=== PATIENT | male | born 1940 | race Caucasian/White ===

== ENCOUNTER 2020-07-02 09:39 | Emergency (ER) | payer MEDICARE, OTHER ==
[2020-07-02] MEDS ORDERED: Lidocaine 1% 10 ML MDV INJECT ONE (10:05)
--- NOTE | 2020-07-02 10:10 | EDM.PDOC ---
ED HPI GENERAL MEDICAL PROBLEM - General Chief Complaint: Trauma Stated Complaint: SYNCOPE/ FACIAL INJURIES Time Seen by Provider: 07/02/20 10:05 Source of Information: Reports: Patient, Family (spouse) History Limitations: Reports: No Limitations - History of Present Illness INITIAL COMMENTS - FREE TEXT/NARRATIVE: 79-year-old male presents to the ED after syncopal event at home this morning. Patient believes he may have a hiatal hernia and this intermittently will cause him to have vasovagal symptoms due to recurrent burping belching and pressure in the epigastrium. He states this morning it got quite bad to the point that he did not think he could get a breath and then he passed out. He struck the floor primarily with his face and suffered a deep laceration in the left eyebrow area. Contused his left elbow but did not appear to suffer any other injuries. Injury occurred about an hour and a half prior to coming to the ED. He believes he is up-to-date on his tetanus toxoid. Onset: Today, Sudden Onset Date: 07/02/20 Onset Time: 08:30 Duration: Hour(s):, Constant Location: Reports: Face (Facial laceration left eyebrow) Quality: Reports: Ache Severity: Moderate Improves with: Reports: None Worsens with: Reports: None Context: Denies: Activity, Exercise, Lifting, Sick Contact, Trauma, Other Associated Symptoms: Denies: Confusion, Chest Pain, Cough, cough w sputum, Diaphoresis, Fever/Chills, Headaches, Loss of Appetite, Malaise, Nausea/Vomiting, Rash, Seizure, Shortness of Breath Treatments SHANK TAPER: Reports: Other (see below) (None.) - Related Data Allergies Allergy/AdvReac Type Severity Reaction Status Date / Time nuts Allergy Cannot Uncoded 07/02/20 10:03 Remember Home Meds: Home Meds Calcium Carbonate [Calcium] 1,200 mg PO DAILY 07/02/20 [History] Donepezil [Aricept] 10 mg PO DAILY 07/02/20 [History] Finasteride [Proscar] 5 mg PO DAILY 07/02/20 [History] Fluticasone Furoate [Flonase Sensimist] 1 dose MICAELA DAILY 07/02/20 [History] Sertraline [Zoloft] 50 mg PO DAILY 07/02/20 [History] Vitamin B Complex Vit C No.3 [B Complex with Vitamin C] 1 tab PO DAILY 07/02/20 [History] Past Medical History Genitourinary History: Reports: BPH Musculoskeletal History: Reports: Osteoarthritis Social & Family History - Living Situation & Occupation Living situation: Reports: Occupation: Retired Review of Systems - Review of Systems Review Of Systems: See Below Constitutional: Denies: Chills, Diaphoresis, Fever, Weakness, Other Eyes: Reports: No Symptoms, Glasses (For reading.) Ears: Reports: Other (Does wear bilateral hearing aids.) Mouth/Throat: Reports: No Symptoms, Loose Teeth. Denies: Bleeding, Clots, Lip Swelling Respiratory: Reports: No Symptoms Cardiovascular: Reports: Syncope ([place] to be precipitated by vasovagal episode this morning.) GI/Abdominal: Reports: Other (Pressure in the epigastrium on intermittent basis he believes he has a hiatal hernia. This caused vasovagal symptoms this morning which precipitated a syncopal event.) Genitourinary: Reports: Other (Nocturia x2.) Musculoskeletal: Reports: No Symptoms Skin: Reports: No Symptoms Neurological: Reports: No Symptoms Psychiatric: Reports: No Symptoms ED EXAM, GENERAL - Physical Exam Exam: See Below Exam Limited By: No Limitations General Appearance: Alert, WD/WN, Mild Distress, Other (Patient has an obvious curvilinear laceration left eyebrow that measures 3 cm in length.) Eye Exam: Bilateral Eye: Normal Inspection, PERRL, Other (Curvilinear laceration over the supraorbital ridge and eyebrow area left side) Throat/Mouth: Normal Inspection, Normal Lips, Normal Teeth, Normal Oropharynx Head: Normocephalic, Other (Starting to get a little black and blue underneath his left eye. Firm compression over the maxillary sinuses and zygomatic processes do not reveal any fractures. Temporomandibular joints are normal.) Neck: Normal Inspection, Supple, Non-Tender, Full Range of Motion, Other (Full unopposed range of motion of his cervical spine.). No: Lymphadenopathy (L), Lymphadenopathy (R) Respiratory/Chest: No Respiratory Distress, Lungs Clear, Normal Breath Sounds, No Accessory Muscle Use Cardiovascular: Normal Peripheral Pulses, Regular Rate, Rhythm, No Edema, No Murmur, No Rub Peripheral Pulses: 2+: Posterior Tibial (L), Posterior Tibial (R), Dorsalis Pedis (L), Dorsalis Pedis (R), 3+: Carotid (L), Carotid (R) GI/Abdominal: Normal Bowel Sounds, Soft, Non-Tender, No Organomegaly, No Abnormal Bruit, No Mass, Pelvis Stable Extremities: Other (Has some pain in his left elbow but has full range of motion and full pronation supination of the) Neurological: Alert, Oriented ( arm. 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 no injuries to the lower extremities appreciated on exam), CN II-XII Intact, Normal Cognition Psychiatric: Normal Affect, Normal Mood Skin Exam: Warm, Dry, Intact, No Rash ED TRAUMA PROCEDURES - Laceration/Wound Repair Left Lateral Face Lac/Wound Length In cm: 3.5 (Deep 3.5 cm laceration curvilinear along the left eyebrow over the supraorbital ridge) Appearance: Subcutaneous, Clean Distal NVT: Neuro & Vascular Intact Anesthetic Type: Local Local Anesthesia - Lidocaine (Xylocaine): 1% Plain Local Anesthetic Volume: Other Skin Prep: Saline (8 cc) Exploration/Debridement/Repair: Wound Explored Closed With: Sutures Suture Size: 4-0 # of Sutures: 11 Suture Type: Nylon, Interrupted, Simple Course - Vital Signs Last Recorded V/S: Last Vital Signs Temp 36.7 C 07/02/20 10:11 Pulse 70 07/02/20 10:30 Resp 11 L 07/02/20 10:11 BP 120/62 07/02/20 10:30 Pulse Ox 98 07/02/20 10:30 Orthostatic Blood Pressure [] 102/72 Orthostatic Blood Pressure [] 124/93 - Orders/Labs/Meds Meds: Medications Discontinued Medications Generic Name Dose Route Start Last Admin Trade Name Vjq PRN Reason Stop Dose Admin Lidocaine HCl 20 ml 07/02/20 10:05 07/02/20 10:25 Lidocaine 1% 10 Ml Mdv INJECT 07/02/20 10:06 20 ml ONETIME ONE Administration - Radiology Interpretation Free Text/Narrative:: 79-year-old male presents to the ED after suffering a syncopal event which I believe was a vagal vasovagal in origin at home this morning. This resulted in syncope and a fall with resultant contusion to his face. He has a curvilinear laceration approximately 3 cm in length along the left eyebrow area. Clinically has no facial fractures. Neck has full range of motion. He has some mild pain in his left elbow but clinically no evidence of any bony injuries. No injuries to the lower extremities identified either. Plan for laceration repair under local anesthetic. He believes his tetanus diphtheria pertussis vaccine is up-to-date. - Re-Assessments/Exams Free Text/Narrative Re-Assessment/Exam: 07/02/20 10:30: Laceration of the supraorbital ridge left eyebrow area was sutured under local anesthetic times 11 sutures. Utilized 4-0 Ethilon to provide wound closure. Patient will cleanse the wound daily at home with soap and water. He will then apply topical antibiotic such as bacitracin or Polysporin once daily. Sutures could be removed in 8 days time Departure - Departure Time of Disposition: 10:41 Disposition: Home, Self-Care 01 Condition: Fair Clinical Impression: Facial laceration Qualifiers: Encounter type: initial encounter Qualified Code(s): S01.81XA - Laceration without foreign body of other part of head, initial encounter - Discharge Information *PRESCRIPTION DRUG MONITORING PROGRAM REVIEWED*: Not Applicable *COPY OF PRESCRIPTION DRUG MONITORING REPORT IN PATIENT VIVEK: Not Applicable Instructions: Laceration Care, Adult, Sutures, Alex, or Adhesive Wound Closure, [id number] Referrals: Deonte Tamez MD [Primary Care Provider] - Forms: ED Department Discharge Additional Instructions: Evaluation in the emergency room this morning in regards to his syncopal event that occurred at home this morning which I believe was vasovagal in origin. As you described a pressure in the pit of your stomach likely from hiatal hernia causing you to wretch and dry heaves with attempt to burp and belch. This resulted in a vasovagal attack which lowers her heart rate and your blood pressure and causes you to fall or lose consciousness transiently. Unfortunately you have suffered a deep 3.5 cm laceration to your left eyebrow area over the supraorbital ridge. Clinically does not have any facial fractures and no injuries to the neck. Mild contusion to the left elbow appreciated. Facial laceration was sutured under local anesthetic. Treatment at home is to daily cleanse the wound with soap and water. Showering is okay. Then apply topical antibiotic such as bacitracin or Polysporin to the wound once daily. Sutures should be removed in approximately 8 days time. Please follow-up with your personal care provider to have this performed. Follow-up sooner if any signs of infection develop such as increased redness, swelling or pain and/or obvious pus. Sepsis Event Note (ED) - Focused Exam Vital Signs: Vital Signs Temp Pulse Resp BP Pulse Ox 07/02/20 10:30 70 120/62 98 07/02/20 10:11 36.7 C 60 11 L 124/93 H 98
== END 2020-07-02 10:51 | disposition home or self-care (01) ==
LOC: JD.ED 09:39
DX: S01.112A Laceration without foreign body of left eyelid and periocular area, initial encounter (principal); Z91.010 Allergy to peanuts; W22.8XXA Striking against or struck by other objects, initial encounter
CPT/HCPCS: 12013; 99283; 99283-25

== ENCOUNTER 2020-11-04 20:02 | Emergency (ER) | payer MEDICARE, OTHER ==
[2020-11-04] MEDS ORDERED: Sodium Chloride 0.9% 10 ML Syringe FLUSH PRN (20:41)
[2020-11-04] MEDS ORDERED: Ondansetron 4 MG/2 ML SDV IVPUSH ONE (20:41)
[2020-11-04] MEDS ORDERED: HYDROmorphone 0.5 MG/0.5 ML Syringe IVPUSH ONE (20:41)
[2020-11-04] MEDS ORDERED: Sodium Chloride 0.9% 1,000 ML IV SCH (20:45)
--- NOTE | 2020-11-04 20:59 | EDM.PDOC ---
ED HPI GENERAL MEDICAL PROBLEM - General Chief Complaint: Flank Pain Stated Complaint: R SIDE PAIN/VOMITING/WEAK Time Seen by Provider: 11/04/20 20:21 Source of Information: Reports: Patient, RN Notes Reviewed - History of Present Illness INITIAL COMMENTS - FREE TEXT/NARRATIVE: 80 yr old male with onset of R back pain yesterday radiating to R flank, severe at times and than went away until coming back this afternoon. Continues moderately severe this evening with radiation to R flank and towards R groin. Has had some N/V. No voiding sx. Right Flank Pain Score (Numeric/FACES): 7 - Related Data Allergies Allergy/AdvReac Type Severity Reaction Status Date / Time nut - unspecified Allergy Cannot Verified 07/03/20 11:53 Remember Home Meds: Home Meds Calcium Carbonate [Calcium] 1,200 mg PO DAILY 07/02/20 [History] Donepezil [Aricept] 10 mg PO DAILY 07/02/20 [History] Finasteride [Proscar] 5 mg PO DAILY 07/02/20 [History] Fluticasone Furoate [Flonase Sensimist] 1 dose MICAELA DAILY 07/02/20 [History] Sertraline [Zoloft] 50 mg PO DAILY 07/02/20 [History] Vitamin B Complex Vit C No.3 [B Complex with Vitamin C] 1 tab PO DAILY 07/02/20 [History] Hydrocodone/Acetaminophen [HYDROcodone-Acetaminophen 5-325 MG] 1 each PO Q4HR PRN #20 tab 11/04/20 [Rx] Past Medical History Genitourinary History: Reports: BPH Musculoskeletal History: Reports: Osteoarthritis - Infectious Disease History Infectious Disease History: Reports: None - Past Surgical History HEENT Surgical History: Reports: Tonsillectomy Musculoskeletal Surgical History: Reports: Shoulder Surgery Social & Family History - Caffeine Use Caffeine Use: Reports: Coffee - Living Situation & Occupation Living situation: Reports: Occupation: Retired ED ROS GENERAL - Review of Systems Review Of Systems: See Below Constitutional: Reports: Diaphoresis (mild, gone). Denies: Fever, Chills HEENT: Reports: No Symptoms Respiratory: Denies: Shortness of Breath Cardiovascular: Denies: Chest Pain GI/Abdominal: Reports: Abdominal Pain, Nausea, Vomiting (dry heaves) Musculoskeletal: Reports: Back Pain Skin: Reports: No Symptoms Neurological: Reports: No Symptoms ED EXAM, RENAL/ - Physical Exam Exam: See Below General Appearance: Alert, Mild Distress Head: Atraumatic Neck: Supple Respiratory/Chest: No Respiratory Distress, Lungs Clear, Normal Breath Sounds Cardiovascular: Regular Rate, Rhythm GI/Abdominal: Soft, Tender (mild tenderness R flank and R lower abd) Back Exam: CVA Tenderness (R) Extremities: Normal Inspection. No: Pedal Edema Neurological: Alert, Oriented, No Motor/Sensory Deficits Skin Exam: Warm, Dry, Normal Color Course - Vital Signs Last Recorded V/S: Last Vital Signs Temp 96.5 F L 11/04/20 20:29 Pulse 52 L 11/04/20 20:29 Resp 20 11/04/20 20:29 BP 139/79 11/04/20 20:29 Pulse Ox 95 11/04/20 20:29 - Orders/Labs/Meds Orders: Active Orders 24 hr Category Date Time Status Abdomen Pelvis wo Cont [CT] Stat Exams 11/04/20 21:00 Taken Sodium Chloride 0.9% [Normal Saline] 1,000 ml Med 11/04/20 20:45 Active IV ONETIME Sodium Chloride 0.9% [Saline Flush] Med 11/04/20 20:41 Active 10 ml FLUSH ASDIRECTED PRN Peripheral IV Insertion Adult [OM.PC] Stat Oth 11/04/20 20:40 Ordered Medication Orders Sodium Chloride (Normal Saline) 1,000 mls @ 999 mls/hr IV ONETIME [facility] [place] Last Admin: 11/04/20 20:57 Dose: 999 mls/hr Documented by: ISAIAS Sodium Chloride (Sodium Chloride 0.9% 10 Ml Syringe) 10 ml FLUSH ASDIRECTED PRN PRN Reason: Keep Vein Open Last Admin: 11/04/20 20:58 Dose: 10 ml Documented by: ISAIAS Labs: Laboratory Tests 11/04/20 11/04/20 11/04/20 Range/Units 20:50 20:50 20:50 WBC 12.11 H (4.23-9.07) K/mm3 RBC 4.87 (4.63-6.08) M/mm3 Hgb 15.2 (13.7-17.5) gm/dl Hct 46.0 (40.1-51.0) % MCV 94.5 H (79.0-92.2) fl MCH 31.2 (25.7-32.2) pg MCHC 33.0 (32.2-35.5) g/dl RDW Std Deviation 47.8 H (35.1-43.9) fL Plt Count 239 (163-337) K/mm3 MPV 10.1 (9.4-12.3) fl Neut % (Auto) 86.7 H (34.0-67.9) % Lymph % (Auto) 8.1 L (21.8-53.1) % Menard % (Auto) 4.8 L (5.3-12.2) % Eos % (Auto) 0.1 L (0.8-7.0) Baso % (Auto) 0.2 (0.1-1.2) % Neut # (Auto) 10.51 H (1.78-5.38) K/mm3 Lymph # (Auto) 0.98 L (1.32-3.57) K/mm3 Menard # (Auto) 0.58 (0.30-0.82) K/mm3 Eos # (Auto) 0.01 L (0.04-0.54) K/mm3 Baso # (Auto) 0.02 (0.01-0.08) K/mm3 Sodium 140 (136-145) mEq/L Potassium 4.5 (3.5-5.1) mEq/L Chloride 105 (98-107) mEq/L Carbon Dioxide 27 (21-32) mEq/L Anion Gap 12.5 (5-15) BUN 36 H (7-18) mg/dL Creatinine 1.6 H (0.7-1.3) mg/dL Est Cr Clr Drug Dosing 39.87 mL/min Estimated GFR (MDRD) 42 (>60) mL/min BUN/Creatinine Ratio 22.5 H (14-18) Glucose 149 H (70-99) mg/dL Calcium 8.6 (8.5-10.1) mg/dL Total Bilirubin 0.6 (0.2-1.0) mg/dL AST 23 (15-37) U/L ALT 38 (16-63) U/L Alkaline Phosphatase 65 (46-116) U/L C-Reactive Protein <0.2 (<1.0) mg/dL Total Protein 6.9 (6.4-8.2) g/dl Albumin 3.7 (3.4-5.0) g/dl Globulin 3.2 gm/dL Albumin/Globulin Ratio 1.2 (1-2) Urine Color (Yellow) Urine Appearance (Clear) Urine pH (5.0-8.0) Ur Specific Lipan (1.005-1.030) Urine Protein (Negative) Urine Glucose (UA) (Negative) Urine Ketones (Negative) Urine Occult Blood (Negative) Urine Nitrite (Negative) Urine Bilirubin (Negative) Urine Urobilinogen (0.2-1.0) Ur Leukocyte Esterase (Negative) Urine RBC (0-5) /hpf Urine WBC (0-5) /hpf Ur Squamous Epith Cells (0-5) /hpf Urine Bacteria (FEW) /hpf Urine Mucus (FEW) /hpf 11/04/20 Range/Units 23:31 WBC (4.23-9.07) K/mm3 RBC (4.63-6.08) M/mm3 Hgb (13.7-17.5) gm/dl Hct (40.1-51.0) % MCV (79.0-92.2) fl MCH (25.7-32.2) pg MCHC (32.2-35.5) g/dl RDW Std Deviation (35.1-43.9) fL Plt Count (163-337) K/mm3 MPV (9.4-12.3) fl Neut % (Auto) (34.0-67.9) % Lymph % (Auto) (21.8-53.1) % Menard % (Auto) (5.3-12.2) % Eos % (Auto) (0.8-7.0) Baso % (Auto) (0.1-1.2) % Neut # (Auto) (1.78-5.38) K/mm3 Lymph # (Auto) (1.32-3.57) K/mm3 Menard # (Auto) (0.30-0.82) K/mm3 Eos # (Auto) (0.04-0.54) K/mm3 Baso # (Auto) (0.01-0.08) K/mm3 Sodium (136-145) mEq/L Potassium (3.5-5.1) mEq/L Chloride (98-107) mEq/L Carbon Dioxide (21-32) mEq/L Anion Gap (5-15) BUN (7-18) mg/dL Creatinine (0.7-1.3) mg/dL Est Cr Clr Drug Dosing mL/min Estimated GFR (MDRD) (>60) mL/min BUN/Creatinine Ratio (14-18) Glucose (70-99) mg/dL Calcium (8.5-10.1) mg/dL Total Bilirubin (0.2-1.0) mg/dL AST (15-37) U/L ALT (16-63) U/L Alkaline Phosphatase (46-116) U/L C-Reactive Protein (<1.0) mg/dL Total Protein (6.4-8.2) g/dl Albumin (3.4-5.0) g/dl Globulin gm/dL Albumin/Globulin Ratio (1-2) Urine Color Yellow (Yellow) Urine Appearance Slt cloudy H (Clear) Urine pH 5.5 (5.0-8.0) Ur Specific Lipan 1.025 (1.005-1.030) Urine Protein 1+ H (Negative) Urine Glucose (UA) Negative (Negative) Urine Ketones Negative (Negative) Urine Occult Blood 3+ H (Negative) Urine Nitrite Negative (Negative) Urine Bilirubin Negative (Negative) Urine Urobilinogen 0.2 (0.2-1.0) Ur Leukocyte Esterase 1+ H (Negative) Urine RBC >100 H (0-5) /hpf Urine WBC 5-10 H (0-5) /hpf Ur Squamous Epith Cells 0-5 (0-5) /hpf Urine Bacteria Few (FEW) /hpf Urine Mucus Moderate H (FEW) /hpf Meds: Medications Generic Name Dose Route Start Last Admin Trade Name Freq PRN Reason Stop Dose Admin Sodium Chloride 1,000 mls @ 999 mls/hr 11/04/20 20:45 11/04/20 20:57 Normal Saline IV 999 mls/hr ONETIME YANE Administration Sodium Chloride 10 ml 11/04/20 20:41 11/04/20 20:58 Sodium Chloride 0.9% 10 Ml Syringe FLUSH 10 ml ASDIRECTED PRN Administration Keep Vein Open Discontinued Medications Generic Name Dose Route Start Last Admin Trade Name Freq PRN Reason Stop Dose Admin Hydromorphone HCl 0.5 mg 11/04/20 20:41 11/04/20 20:57 Hydromorphone 0.5 Mg/0.5 Ml Syringe IVPUSH 11/04/20 20:42 0.5 mg ONETIME ONE Administration Ondansetron HCl 4 mg 11/04/20 20:41 11/04/20 20:57 Ondansetron 4 Mg/2 Ml Sdv IVPUSH 11/04/20 20:42 4 mg ONETIME ONE Administration - Re-Assessments/Exams Free Text/Narrative Re-Assessment/Exam: 11/05/20 00:[address] showed a 3 by 5 mm stone distal R ureter, see Radiology report for details. He has had good relief from dilaudid 0.5 mg IV. Discharge instr. as documented Departure - Departure Time of Disposition: 23:18 Disposition: Home, Self-Care 01 Condition: Fair Clinical Impression: Kidney stone on right side, Ureter colic - Discharge Information Prescriptions: Hydrocodone/Acetaminophen [HYDROcodone-Acetaminophen 5-325 MG] 1 each PO Q4HR PRN #20 tab PRN Reason: Pain Instructions: Kidney Stones, [id number] Referrals: Deonte Tamez MD [Primary Care Provider] - Forms: ED Department Discharge Additional Instructions: Strain urine to watch for stone. Drink plenty of water to maintain hydration. Tylenol for mild to moderate pain or hydrocodone if needed for severe pain. Prescription has been sent to [facility]. Follow up clinic Monday or early next week for recheck. Return to ED as needed. Sepsis Event Note (ED) - Focused Exam Vital Signs: Vital Signs Temp Pulse Resp BP Pulse Ox 11/04/20 20:29 96.5 F L 52 L 20 139/79 95 - My Orders Last 24 Hours: My Active Orders 11/04/20 20:40 Peripheral IV Insertion Adult [OM.PC] Stat 11/04/20 20:41 Sodium Chloride 0.9% [Saline Flush] 10 ml FLUSH ASDIRECTED PRN 11/04/20 20:45 Sodium Chloride 0.9% [Normal Saline] 1,000 ml IV ONETIME 11/04/20 21:00 Abdomen Pelvis wo Cont [CT] Stat - Assessment/Plan Last 24 Hours: My Active Orders 11/04/20 20:40 Peripheral IV Insertion Adult [OM.PC] Stat 11/04/20 20:41 Sodium Chloride 0.9% [Saline Flush] 10 ml FLUSH ASDIRECTED PRN 11/04/20 20:45 Sodium Chloride 0.9% [Normal Saline] 1,000 ml IV ONETIME 11/04/20 21:00 Abdomen Pelvis wo Cont [CT] Stat
--- NOTE | 2020-11-05 06:54 | CT ---
CT abdomen and pelvis Technique: Multiple axial sections were obtained from above the dome of the diaphragm inferiorly through the pubic symphysis. Intravenous and oral contrast were not utilized. Study has been performed as a ureteral stone protocol. Reconstructed coronal and sagittal images were also obtained. Comparison: No prior abdominal imaging is available. Findings: Linear densities are seen within both lung bases which is most likely due to areas of atelectasis and scarring. Small hiatal hernia is noted. Dilated right ureter is noted. This finding is caused by an obstructing stone within the distal right ureter measuring about 5 mm. There is inflammatory change around the right kidney compatible with the obstruction. Parapelvic cysts are noted within the left kidney. Cortical calcifications are seen within a portion of the right kidney compatible with scarring. Several small nonobstructing calculi are seen within both kidneys. Noncontrast appearance of the liver shows no focal abnormality. Multiple calcified gallstones are seen within the gallbladder. Spleen size is normal. Adrenal glands show no nodule. Pancreas shows no discrete abnormality. Abdominal aorta shows atherosclerotic calcification with extension into the iliac arteries. No aneurysm is seen. Three calcifications are noted within the bladder. Largest bladder calculus measures 1.6 cm. Diverticuli are noted within the sigmoid colon with no findings of diverticulitis. No free fluid or other inflammatory change is seen. Impression: 1. 5 mm obstructing stone within the distal right ureter which is located around 6-7 cm from the UVJ. 2. Several small nonobstructing calculi within both kidneys. Slight cortical calcifications are seen within the right kidney compatible with scarring. Small parapelvic cysts noted within the left kidney. 3. Atelectasis and scarring within both lung bases. 4. Numerous small calcified gallstones within the gallbladder. 5. Three calcifications within the bladder compatible with bladder calculi. 6. Other findings as noted above which are felt to be nonacute. Diagnostic code #3 I agree with preliminary report from [facility], finalized on 11/04/20, 11:51 PM CDT, code 1
== END 2020-11-04 23:32 | disposition home or self-care (01) ==
LOC: JD.ED 20:02
DX: N20.2 Calculus of kidney with calculus of ureter (principal); M19.90 Unspecified osteoarthritis, unspecified site; Z91.013 Allergy to seafood; Z79.899 Other long term (current) drug therapy
CPT/HCPCS: 36415; 74176; 80053; 81001; 85025; 86140; 96374; 96375; 99284; J1170; J2405; J7030

== ENCOUNTER 2022-10-01 03:01 | Emergency (ER) | payer MEDICARE, OTHER ==
[2022-10-01] MEDS ORDERED: Sodium Chloride 0.9% 1,000 ML IV ONE (03:09)
[2022-10-01 03:32] LABS: BASOPHILS PERCENT AUTO 0.2 % (0.0-1.0); EOSINOPHILS ABSOLUTE AUTO 0.1 K/mm3 (0.0-0.4); EOSINOPHILS PERCENT AUTO 1.4 % (0.0-6.0); HEMATOCRIT 42.1 % (42.0-52.0); HEMOGLOBIN 13.9 gm/dl (14.0-18.0); IMMATURE GRAN ABSOLUTE AUTO 0.02 K/mm3 (0.00-0.05); IMMATURE GRAN PERCENT AUTO 0.2 % (0.0-0.4); LYMPHOCYTES ABSOLUTE AUTO 2.6 K/mm3 (1.0-4.8); LYMPHOCYTES PERCENT AUTO 32.9 % (24.0-44.0); MEAN CORPUSCULAR HEMOGLOBIN 31.5 pg (28.0-32.0); MEAN CORPUSCULAR VOLUME 95.5 fl (83.0-99.0); MEAN PLATELET VOLUME 9.6 fl (9.4-12.4); MONOCYTES ABSOLUTE AUTO 0.6 K/mm3 (0.0-0.8); MONOCYTES PERCENT AUTO 7.7 % (0.0-8.0); NEUTROPHILS ABSOLUTE AUTO 4.6 K/mm3 (1.8-7.7); NEUTROPHILS PERCENT AUTO 57.6 % (41.0-71.0); PLATELET COUNT,PLT 205 K/mm3 (150-400); RED BLOOD CELL COUNT 4.41 M/mm3 (4.52-5.90); WHITE BLOOD CELL COUNT,WBC 8.03 K/mm3 (3.9-11.3)
[2022-10-01 03:49] LABS: INR 1.02; PROTHROMBIN TIME 10.9 SECONDS (9.7-12.0)
[2022-10-01 03:59] LABS: A/G RATIO 1.2 (1-2); ALBUMIN 3.1 g/dl (3.4-5.0); ANION GAP 13.1 (5-15); BILIRUBIN TOTAL 0.5 mg/dL (0.2-1.0); BUN/CREATININE RATIO 19.4 (14-18); CALCIUM 8.5 mg/dL (8.5-10.1); CREATININE 1.6 mg/dL (0.7-1.3); EST CRCL DRUG DOSING (CG) 38.98 mL/min; POTASSIUM,K 4.1 mEq/L (3.5-5.1); PROTEIN TOTAL,TP 5.8 g/dl (6.4-8.2)
== END 2022-10-01 05:06 | disposition home or self-care (01) ==
LOC: JD.ED 03:01
DX: E86.0 Dehydration (principal); R19.7 Diarrhea, unspecified; Z91.018 Allergy to other foods
CPT/HCPCS: 36415; 70450; 80053; 84484; 85025; 85610; 86850; 86900; 86901; 93005; 96360; 99284; J7030; 93010; 99283

== ENCOUNTER 2022-10-14 11:36 | Emergency (ER) | payer MEDICARE, OTHER | END 2022-10-14 13:15 | disposition home or self-care (01) | LOC: JD.ED 11:36 | DX: N21.0 Calculus in bladder (principal); J45.909 Unspecified asthma, uncomplicated; Z91.018 Allergy to other foods | CPT/HCPCS: 51798; 99283 ==

== ENCOUNTER 2022-12-04 12:55 | Observation (INO) | payer MEDICARE, OTHER ==
[2022-12-04 13:22] LABS: BASOPHILS PERCENT AUTO 0.4 % (0.0-1.0); EOSINOPHILS PERCENT AUTO 0.4 % (0.0-6.0); HEMATOCRIT 44.2 % (42.0-52.0); HEMOGLOBIN 15.1 gm/dl (14.0-18.0); IMMATURE GRAN ABSOLUTE AUTO 0.01 K/mm3 (0.00-0.05); IMMATURE GRAN PERCENT AUTO 0.2 % (0.0-0.4); LYMPHOCYTES ABSOLUTE AUTO 1.1 K/mm3 (1.0-4.8); LYMPHOCYTES PERCENT AUTO 19.6 % (24.0-44.0); MEAN CORPUSCULAR HEMOGLOBIN 32.2 pg (28.0-32.0); MEAN CORPUSCULAR HGB CONC 34.2 g/dl (32.0-36.0); MEAN CORPUSCULAR VOLUME 94.2 fl (83.0-99.0); MEAN PLATELET VOLUME 9.9 fl (9.4-12.4); MONOCYTES PERCENT AUTO 19.1 % (0.0-8.0); NEUTROPHILS ABSOLUTE AUTO 3.2 K/mm3 (1.8-7.7); NEUTROPHILS PERCENT AUTO 60.3 % (41.0-71.0); PLATELET COUNT,PLT 196 K/mm3 (150-400); RED BLOOD CELL COUNT 4.69 M/mm3 (4.52-5.90); WHITE BLOOD CELL COUNT,WBC 5.35 K/mm3 (3.9-11.3)
[2022-12-04] MEDS ORDERED: Sodium Chloride 0.9% 1,000 ML IV ONE (13:37)
[2022-12-04 13:41] LABS: INR 0.98; PROTHROMBIN TIME 10.5 SECONDS (9.7-12.0)
[2022-12-04 13:43] LABS: PTT,PARTIAL THROMBOPLSTIN TIME 29.9 SECONDS (21.7-31.4)
[2022-12-04 13:46] LABS: D-DIMER QUANTITATIVE 0.83 mg/L (0.19-0.50)
[2022-12-04 13:47] LABS: A/G RATIO 1.1 (1-2); ALBUMIN 3.5 g/dl (3.4-5.0); ANION GAP 13.9 (5-15); BILIRUBIN TOTAL 0.6 mg/dL (0.2-1.0); BUN/CREATININE RATIO 17.1 (14-18); CALCIUM 8.9 mg/dL (8.5-10.1); CREATININE 1.4 mg/dL (0.7-1.3); EST CRCL DRUG DOSING (CG) 41.95 mL/min; POTASSIUM,K 3.9 mEq/L (3.5-5.1); PROTEIN TOTAL,TP 6.7 g/dl (6.4-8.2)
[2022-12-04] MEDS ORDERED: Ondansetron 4 MG/2 ML SDV IV PRN (15:34)
[2022-12-04] MEDS ORDERED: Ondansetron 4 MG Tab.DIS PO PRN (15:34)
[2022-12-04] MEDS ORDERED: Polyethylene Glycol 3350 Powder 17 GM Packet PO PRN (15:34)
[2022-12-04 15:40] LABS: APPEARANCE,URINE CLEAR (Clear); BILIRUBIN,URINE NEGATIVE (Negative); COLOR,URINE YELLOW (Yellow); GLUCOSE,URINE NEGATIVE (Negative); KETONES,URINE 2+ (Negative); LEUKOCYTE ESTERASE,URINE NEGATIVE (Negative); NITRITE,URINE NEGATIVE (Negative); OCCULT BLOOD,URINE TRACE-INTACT (Negative); PROTEIN,URINE 1+ (Negative); UROBILINOGEN,URINE 0.2 (0.2-1.0)
[2022-12-04] MEDS ORDERED: Heparin Sodium 5,000 Units/ML Vial SUBCUT SCH (15:45)
[2022-12-04 16:00] LABS: SQUAMOUS EPITHELIAL CELLS,UR 0-5 /hpf (0-5); WBC,URINE 0-5 /hpf (0-5)
[2022-12-04 16:01] LABS: AMORPHOUS SEDIMENT,URINE FEW /hpf (NOT SEEN); BACTERIA,URINE MANY /hpf (FEW); HYALINE CASTS,URINE 0-5 /lpf (0-5); MUCUS,URINE MANY /hpf (FEW)
[2022-12-04] MEDS: Acetaminophen 325 MG Tab PO PRN (19:12)
[2022-12-05] MEDS: Heparin Sodium 5,000 Units/ML Vial SUBCUT SCH ×3 (01:51→16:26)
[2022-12-05] MEDS ORDERED: Sertraline 50 MG Tab PO SCH (09:00)
[2022-12-05] MEDS ORDERED: Finasteride 5 MG Tab PO SCH (09:00)
[2022-12-05] MEDS ORDERED: FLUTICASONE SCH (09:00)
[2022-12-05] MEDS ORDERED: [UNRECOGNIZED DRUG - OTHER] SCH (09:00)
[2022-12-05] MEDS ORDERED: LORazepam 1 MG Tab PO SCH (09:00)
[2022-12-05] MEDS ORDERED: AZELASTINE SCH (09:00)
[2022-12-05] MEDS ORDERED: Calcium Carbonate 600 MG Tab PO SCH (09:00)
[2022-12-05] MEDS: Donepezil 10 MG Tab**OWN MED PO SCH (20:29)
[2022-12-05] MEDS ORDERED: Donepezil 10 MG Tab PO SCH (21:00)
[2022-12-05] MEDS ORDERED: AZELASTINE 137 MCG TOP SCH (21:00)
[2022-12-05] MEDS: AZELASTINE HCL SCH (21:07)
[2022-12-05] MEDS ORDERED: Albuterol 6.7 GM Inhaler INH ONE (22:00)
[2022-12-06] MEDS: Heparin Sodium 5,000 Units/ML Vial SUBCUT SCH ×3 (00:49→17:59)
[2022-12-06] MEDS: AZELASTINE HCL SCH ×2 (09:33→20:01)
[2022-12-06] MEDS: Finasteride 5 MG Tab**OWN MED PO SCH (09:33)
[2022-12-06] MEDS: CALCIUM CITRATE PO SCH (09:33)
[2022-12-06] MEDS: SERTRALINE 100 MG **OWN MED PO SCH (09:33)
[2022-12-06] MEDS: CHOLECALCIFEROL PO SCH (09:33)
[2022-12-06] MEDS: Acetaminophen 325 MG Tab PO PRN (09:35)
[2022-12-06] MEDS: Donepezil 10 MG Tab**OWN MED PO SCH (20:01)
[2022-12-07] MEDS: Heparin Sodium 5,000 Units/ML Vial SUBCUT SCH ×3 (01:51→19:19)
[2022-12-07] MEDS: LORazepam 1 MG Tab**OWN MED PO PRN ×2 (02:59→16:42)
[2022-12-07] MEDS: CHOLECALCIFEROL PO SCH (09:04)
[2022-12-07] MEDS: CALCIUM CITRATE PO SCH (09:04)
[2022-12-07] MEDS: AZELASTINE HCL SCH ×2 (09:04→20:04)
[2022-12-07] MEDS: SERTRALINE 100 MG **OWN MED PO SCH (09:05)
[2022-12-07] MEDS: Finasteride 5 MG Tab**OWN MED PO SCH (09:05)
[2022-12-07] MEDS: Donepezil 10 MG Tab**OWN MED PO SCH (20:04)
[2022-12-08] MEDS: Heparin Sodium 5,000 Units/ML Vial SUBCUT SCH ×3 (02:23→16:54)
[2022-12-08] MEDS: Finasteride 5 MG Tab**OWN MED PO SCH (09:10)
[2022-12-08] MEDS: CALCIUM CITRATE PO SCH (09:10)
[2022-12-08] MEDS: AZELASTINE HCL SCH ×2 (09:10→20:01)
[2022-12-08] MEDS: CHOLECALCIFEROL PO SCH (09:10)
[2022-12-08] MEDS: SERTRALINE 100 MG **OWN MED PO SCH (09:10)
[2022-12-08] MEDS: RIVASTIGMINE 1.5 MG PO SCH ×2 (11:38→13:45)
[2022-12-08] MEDS: LORazepam 1 MG Tab**OWN MED PO PRN (19:59)
[2022-12-08] MEDS: Donepezil 10 MG Tab**OWN MED PO SCH (20:00)
[2022-12-09] MEDS: Heparin Sodium 5,000 Units/ML Vial SUBCUT SCH ×3 (02:29→17:55)
[2022-12-09] MEDS: AZELASTINE HCL SCH ×2 (08:33→21:14)
[2022-12-09] MEDS: Finasteride 5 MG Tab**OWN MED PO SCH (08:34)
[2022-12-09] MEDS: CALCIUM CITRATE PO SCH (08:34)
[2022-12-09] MEDS: CHOLECALCIFEROL PO SCH (08:34)
[2022-12-09] MEDS: SERTRALINE 100 MG **OWN MED PO SCH (08:34)
[2022-12-09] MEDS: CETIRIZINE 10 MG PO SCH (08:35)
[2022-12-09] MEDS: Donepezil 10 MG Tab**OWN MED PO SCH (21:14)
[2022-12-10] MEDS: Heparin Sodium 5,000 Units/ML Vial SUBCUT SCH ×3 (00:49→16:36)
[2022-12-10] MEDS: AZELASTINE HCL SCH ×2 (08:39→20:28)
[2022-12-10] MEDS: CALCIUM CITRATE PO SCH (08:39)
[2022-12-10] MEDS: Finasteride 5 MG Tab**OWN MED PO SCH (08:39)
[2022-12-10] MEDS: SERTRALINE 100 MG **OWN MED PO SCH (08:39)
[2022-12-10] MEDS: CHOLECALCIFEROL PO SCH (08:39)
[2022-12-10] MEDS: CETIRIZINE 10 MG PO SCH (08:40)
[2022-12-10] MEDS: Donepezil 10 MG Tab**OWN MED PO SCH (20:28)
[2022-12-11] MEDS: Heparin Sodium 5,000 Units/ML Vial SUBCUT SCH ×3 (01:16→17:41)
[2022-12-11] MEDS: Acetaminophen 325 MG Tab PO PRN (08:26)
[2022-12-11] MEDS: LORazepam 1 MG Tab**OWN MED PO PRN (08:27)
[2022-12-11] MEDS: CHOLECALCIFEROL PO SCH (08:27)
[2022-12-11] MEDS: CALCIUM CITRATE PO SCH (08:27)
[2022-12-11] MEDS: AZELASTINE HCL SCH ×2 (08:27→20:51)
[2022-12-11] MEDS: SERTRALINE 100 MG **OWN MED PO SCH (08:28)
[2022-12-11] MEDS: Finasteride 5 MG Tab**OWN MED PO SCH (08:28)
[2022-12-11] MEDS: CETIRIZINE 10 MG PO SCH (08:28)
[2022-12-11] MEDS: Donepezil 10 MG Tab**OWN MED PO SCH (20:51)
[2022-12-12] MEDS: Heparin Sodium 5,000 Units/ML Vial SUBCUT SCH ×3 (05:51→17:20)
[2022-12-12] MEDS: AZELASTINE HCL SCH ×2 (08:32→20:00)
[2022-12-12] MEDS: CHOLECALCIFEROL PO SCH (08:33)
[2022-12-12] MEDS: SERTRALINE 100 MG **OWN MED PO SCH (08:33)
[2022-12-12] MEDS: CALCIUM CITRATE PO SCH (08:33)
[2022-12-12] MEDS: Finasteride 5 MG Tab**OWN MED PO SCH (08:34)
[2022-12-12] MEDS: CETIRIZINE 10 MG PO SCH (08:34)
[2022-12-12] MEDS: Non-Formulary Medication 1 Each (Albuterol Sulfate [Proair Respiclick] 90 MCG Aer.Pow.Ba) SCH (09:32)
[2022-12-12] MEDS: FLUTICASONE FUROATE SCH (09:32)
[2022-12-12] MEDS: QUEtiapine 25 MG Tab PO SCH (20:00)
[2022-12-12] MEDS: Donepezil 10 MG Tab**OWN MED PO SCH (20:00)
[2022-12-13] MEDS: Heparin Sodium 5,000 Units/ML Vial SUBCUT SCH ×3 (01:08→17:40)
[2022-12-13] MEDS: AZELASTINE HCL SCH ×2 (09:01→20:15)
[2022-12-13] MEDS: CALCIUM CITRATE PO SCH (09:01)
[2022-12-13] MEDS: CHOLECALCIFEROL PO SCH (09:01)
[2022-12-13] MEDS: SERTRALINE 100 MG **OWN MED PO SCH (09:01)
[2022-12-13] MEDS: Finasteride 5 MG Tab**OWN MED PO SCH (09:02)
[2022-12-13] MEDS: CETIRIZINE 10 MG PO SCH (09:03)
[2022-12-13] MEDS: Acetaminophen 325 MG Tab PO PRN (12:07)
[2022-12-13] MEDS: LORazepam 1 MG Tab**OWN MED PO PRN (12:10)
[2022-12-13] MEDS: QUEtiapine 25 MG Tab PO SCH (20:14)
[2022-12-13] MEDS: Donepezil 10 MG Tab**OWN MED PO SCH (20:15)
[2022-12-14] MEDS: Heparin Sodium 5,000 Units/ML Vial SUBCUT SCH ×2 (00:30→08:20)
[2022-12-14] MEDS: AZELASTINE HCL SCH (08:20)
[2022-12-14] MEDS: CETIRIZINE 10 MG PO SCH (08:21)
[2022-12-14] MEDS: SERTRALINE 100 MG **OWN MED PO SCH (08:21)
[2022-12-14] MEDS: CHOLECALCIFEROL PO SCH (08:21)
[2022-12-14] MEDS: CALCIUM CITRATE PO SCH (08:21)
[2022-12-14] MEDS: Finasteride 5 MG Tab**OWN MED PO SCH (08:21)
== END 2022-12-14 13:30 ==
LOC: JD.ED 12:55 → JD.MS 15:23 → UNDOADMIN 15:23 → JD.MS 15:35 → INTOOBSV 15:35
PROVIDERS: ADMIT Hospitalist; ATTEND Hospitalist
DX: F03.C0 Unspecified dementia, severe, without behavioral disturbance, psychotic disturbance, mood disturbance, and anxiety (principal); U07.1 COVID-19; N18.31 Chronic kidney disease, stage 3a; E86.0 Dehydration; M62.81 Muscle weakness (generalized); R26.2 Difficulty in walking, not elsewhere classified; J45.909 Unspecified asthma, uncomplicated; N40.0 Benign prostatic hyperplasia without lower urinary tract symptoms; F32.A Depression, unspecified; Z79.899 Other long term (current) drug therapy; W19.XXXA Unspecified fall, initial encounter
CPT/HCPCS: 36415; 70450; 80053; 81001; 84484; 85025; 85379; 85610; 85730; 93005; 96360; 96372; 97110; 97112; 97116; 97162; 97530; 99285; A9270; G0378; J1644; J7030; U0002; 93010; 99284; J3490

== ENCOUNTER 2024-02-29 09:32 | Emergency (ER) | payer MEDICARE, OTHER ==
[2024-02-29 10:20] LABS: BASOPHILS PERCENT AUTO 0.4 % (0.0-1.0); EOSINOPHILS PERCENT AUTO 0.7 % (0.0-6.0); HEMATOCRIT 48.2 % (42.0-52.0); HEMOGLOBIN 15.9 gm/dl (14.0-18.0); IMMATURE GRAN ABSOLUTE AUTO 0.02 K/mm3 (0.00-0.05); IMMATURE GRAN PERCENT AUTO 0.4 % (0.0-0.4); LYMPHOCYTES ABSOLUTE AUTO 0.8 K/mm3 (1.0-4.8); LYMPHOCYTES PERCENT AUTO 13.4 % (24.0-44.0); MEAN CORPUSCULAR HEMOGLOBIN 31.4 pg (28.0-32.0); MEAN CORPUSCULAR VOLUME 95.3 fl (83.0-99.0); MEAN PLATELET VOLUME 9.8 fl (9.4-12.4); MONOCYTES ABSOLUTE AUTO 0.8 K/mm3 (0.0-0.8); MONOCYTES PERCENT AUTO 14.1 % (0.0-8.0); NEUTROPHILS ABSOLUTE AUTO 4.1 K/mm3 (1.8-7.7); PLATELET COUNT,PLT 214 K/mm3 (150-400); RED BLOOD CELL COUNT 5.06 M/mm3 (4.52-5.90); WHITE BLOOD CELL COUNT,WBC 5.69 K/mm3 (3.9-11.3)
[2024-02-29 10:40] LABS: ALBUMIN 3.4 g/dl (3.4-5.0); BILIRUBIN TOTAL 0.7 mg/dL (0.2-1.0); BUN/CREATININE RATIO 16.3 (14-18); C-REACTIVE PROTEIN 0.66 mg/dL (<0.30); CALCIUM 8.9 mg/dL (8.5-10.1); CREATININE 1.6 mg/dL (0.7-1.3); EST CRCL DRUG DOSING (CG) 41.39 mL/min; MAGNESIUM 2.3 mg/dL (1.8-2.4); PROTEIN TOTAL,TP 6.7 g/dl (6.4-8.2)
[2024-02-29 12:01] LABS: APPEARANCE,URINE CLEAR (Clear); BILIRUBIN,URINE NEGATIVE (Negative); COLOR,URINE YELLOW (Yellow); GLUCOSE,URINE NEGATIVE (Negative); KETONES,URINE NEGATIVE (Negative); LEUKOCYTE ESTERASE,URINE NEGATIVE (Negative); NITRITE,URINE NEGATIVE (Negative); OCCULT BLOOD,URINE NEGATIVE (Negative); PH,URINE 6.5 (5.0-8.0); PROTEIN,URINE 1+ (Negative)
[2024-02-29 13:13] LABS: BACTERIA,URINE FEW /hpf (FEW); EPITHELIAL CELLS,URINE 0-5 /hpf (0-5); RBC,URINE 0-5 /hpf (0-5); WBC,URINE 0-5 /hpf (0-5)
[2024-02-29 13:14] LABS: MUCUS,URINE MANY /hpf (FEW)
== END 2024-02-29 13:34 | disposition home or self-care (01) ==
LOC: JD.ED 09:32
DX: S70.01XA Contusion of right hip, initial encounter (principal); J45.909 Unspecified asthma, uncomplicated; Z91.018 Allergy to other foods; Z79.899 Other long term (current) drug therapy; Z90.49 Acquired absence of other specified parts of digestive tract; W19.XXXA Unspecified fall, initial encounter
CPT/HCPCS: 36415; 70450; 73502; 80053; 81001; 83735; 85025; 86140; 99285; C1758

== ENCOUNTER 2024-04-27 08:17 | Emergency (ER) | payer MEDICARE, OTHER ==
[2024-04-27] MEDS ORDERED: Sodium Chloride 0.9% 10 ML Syringe FLUSH PRN (08:35)
[2024-04-27] MEDS: Sodium Chloride 0.9% 500 ML IV ONE (08:51)
[2024-04-27 09:03] LABS: BASOPHILS PERCENT AUTO 0.4 % (0.0-1.0); EOSINOPHILS ABSOLUTE AUTO 0.1 K/mm3 (0.0-0.4); EOSINOPHILS PERCENT AUTO 1.6 % (0.0-6.0); HEMATOCRIT 47.9 % (42.0-52.0); HEMOGLOBIN 15.7 gm/dl (14.0-18.0); IMMATURE GRAN ABSOLUTE AUTO 0.02 K/mm3 (0.00-0.05); IMMATURE GRAN PERCENT AUTO 0.3 % (0.0-0.4); LYMPHOCYTES ABSOLUTE AUTO 2.2 K/mm3 (1.0-4.8); LYMPHOCYTES PERCENT AUTO 27.8 % (24.0-44.0); MEAN CORPUSCULAR HEMOGLOBIN 31.4 pg (28.0-32.0); MEAN CORPUSCULAR HGB CONC 32.8 g/dl (32.0-36.0); MEAN CORPUSCULAR VOLUME 95.8 fl (83.0-99.0); MEAN PLATELET VOLUME 10.1 fl (9.4-12.4); MONOCYTES ABSOLUTE AUTO 0.6 K/mm3 (0.0-0.8); NEUTROPHILS ABSOLUTE AUTO 4.9 K/mm3 (1.8-7.7); NEUTROPHILS PERCENT AUTO 61.9 % (41.0-71.0); PLATELET COUNT,PLT 229 K/mm3 (150-400); WHITE BLOOD CELL COUNT,WBC 7.89 K/mm3 (3.9-11.3)
[2024-04-27 09:29] LABS: ALANINE AMINOTRANSFERASE,ALT 22 U/L (16-63); ALKALINE PHOSPHATASE 96 U/L (46-116); ANION GAP 9.3 (5-15); ASPARTATE AMNIOTRANSFERASE,AST 17 U/L (15-37); BILIRUBIN TOTAL 0.6 mg/dL (0.2-1.0); BLOOD UREA NITROGEN,BUN 23 mg/dL (7-18); BUN/CREATININE RATIO 15.3 (14-18); CALCIUM 8.7 mg/dL (8.5-10.1); CARBON DIOXIDE,CO2 28 mEq/L (21-32); CHLORIDE,CL 108 mEq/L (98-107); CREATININE 1.5 mg/dL (0.7-1.3); ESTIMATED GFR 46 mL/min (>60); GLUCOSE RANDOM 125 mg/dL (70-99); MAGNESIUM 2.1 mg/dL (1.8-2.4); POTASSIUM,K 4.3 mEq/L (3.5-5.1); SODIUM,NA 141 mEq/L (136-145); TROPONIN I HIGH SENSITIVITY 5 pg/mL (<=76)
[2024-04-27 13:26] LABS: APPEARANCE,URINE SLT CLOUDY (Clear); BILIRUBIN,URINE NEGATIVE (Negative); COLOR,URINE YELLOW (Yellow); GLUCOSE,URINE NEGATIVE (Negative); KETONES,URINE NEGATIVE (Negative); LEUKOCYTE ESTERASE,URINE 1+ (Negative); NITRITE,URINE NEGATIVE (Negative); OCCULT BLOOD,URINE 2+ (Negative); PROTEIN,URINE 2+ (Negative); UROBILINOGEN,URINE 0.2 (0.2-1.0)
[2024-04-27 13:44] LABS: BACTERIA,URINE FEW /hpf (FEW); EPITHELIAL CELLS,URINE 0-5 /hpf (0-5); MUCUS,URINE FEW /hpf (FEW); RBC,URINE 20-30 /hpf (0-5)
[2024-04-27] MEDS: Cefdinir 300 MG Cap PO ONE (14:26)
== END 2024-04-27 15:15 | disposition home or self-care (01) ==
LOC: JD.ED 08:17
DX: R55 Syncope and collapse (principal); R82.90 Unspecified abnormal findings in urine; J45.909 Unspecified asthma, uncomplicated; Z79.899 Other long term (current) drug therapy; Z91.018 Allergy to other foods; Z79.51 Long term (current) use of inhaled steroids
CPT/HCPCS: 36415; 71045; 80053; 81001; 83735; 83880; 84484; 85025; 87086; 93005; 96360; 96361; 99284; A9270; C1758; J7030; 93010; 99283